=== PATIENT | female | born 1935 | race Caucasian/White ===

== ENCOUNTER 2018-11-10 18:27 | Inpatient (IN) | payer MEDICAID, OTHER ==
[2018-11-10 18:27] VITALS: BMI 17.3
[2018-11-10 18:38] VITALS: O2SAT 99
--- NOTE | 2018-11-10 18:40 | ED PDOC ---
Psych Transfer Clearance - Clearance Statement Clearance Statement: Reviewed vital signs, lab results and transfer papers. Patient clinically stable for psychiatric admission.
[2018-11-10] MEDS ORDERED: Bismuth Subsalicylate 262 mg/15 ml Sus (240 ml) PO PRN (19:39)
[2018-11-10] MEDS ORDERED: Alum-Mag Hydrox-Simethicone Susp (30 mL) PO PRN (19:39)
[2018-11-10] MEDS ORDERED: Magnesium Hydroxide Susp 30 ml UD PO PRN (19:39)
--- NOTE | 2018-11-10 20:48 | PCM.BM ---
<James Childs - Last Filed: 11/10/18 20:46> Treatment Plan Problems - Problems identified on initial assessmt Altered THought Process Date Initiated: 11/10/18 Time Initiated: 20:46 Assessment reference: NA Status: Active Priority: 1 Less than Optimal Nutrition Date Initiated: 11/10/18 Time Initiated: 20:46 Assessment reference: NA Status: Active Priority: 2 Medication Non adherence Date Initiated: 11/10/18 Time Initiated: 20:47 Assessment reference: NA Status: Active Priority: 3 Anxiety Date Initiated: 11/10/18 Time Initiated: 20:47 Assessment reference: NA Status: Active Priority: 4 Fear Date Initiated: 11/10/18 Time Initiated: 20:47 Assessment reference: NA Status: Active Priority: 5 Panic Attacks Date Initiated: 11/10/18 Time Initiated: 20:47 Assessment reference: NA Status: Active Priority: 6 Self Care Deficit Date Initiated: 11/10/18 Time Initiated: 20:48 Assessment reference: NA Status: Active Priority: 7 Altered Sleep Pattern Date Initiated: 11/10/18 Time Initiated: 20:50 Assessment reference: NA Status: Active Priority: 8 Treatment assets and liabiliti Patient Assests: ADL independent, good support system Patient Liabilities: imparied memory, language/speech - Milieu Protocol Maintain good personal hygiene: daily Encourage regular showers, daily Remind patient to perform daily oral care, daily Assist patient to perform ADL's Maintain personal safety: every shift Educate patient to report safety concerns to staff, every shift Monitor environment for contraband/sharps Medication safety: Monitor for expected outcome, potential side effects: every shift, Assess barriers to learning: every shift, Assess readiness for medication education: every shift <Roberta Gunderson - Last Filed: 11/13/18 10:01> Family Contact Family involvement: Family/SO is involved Family contact: Patient agrees to contact, Family has been contacted by patient, Telephone contact initiated by staff Family contact name: Clarissa Alvarado - granddaughter Family contacted how many times per week?: 2 Family contact comment: [phone] - Outside Agency [facility] Care involvment: Information-sharing Agency contact number: - Goals for Treatment Patient goals for treatment: Pt will improve overall mood. Pt will be free of persecutory delusions. Pt will be compliant with medications. Pt will attend clinical and activity groups. Pt will be less anxious and more re-directable. Discharge/Continuing Care - Education Needs Education Needs: Family Medication, Family Diagnosis/Disease Process, Family Coping Skills, Family Community resources, Family Activities of Daily Living, Family Health Practices/Safety, Family Personal Hygiene/Grooming, Family Aftercare Safety Plan, Patient Medication, Patient Diagnosis/Disease Process, P atient Coping Skills, Patient Community resources, Patient Activities of Daily Living, Patient Health Practices/Safety, Patient Personal Hygiene/Grooming, Patient Aftercare Safety Plan - Discharge Discharge Criteria: Tolerates medication w/o severe side effects, Free of paranoid thoughts, Free of agitation, Normal sleep pattern, Ability to care for self, Reduction of target symptoms Discharge to:: Home, With Family - Additional Comments 11/13/18 10:08 LATE ENTRY FROM 11/12/2018: Pt discussed in team meeting. Pt invited to attend team meeting but refused. Pt appeared to be highly anxious and pacing in her bedroom. Reason for admission reviewed and discussed. Collateral information obtained from granddaughter reviewed and discussed. Pt presents with increased anxiety, difficult to re- direct and frequent reminders and re-assuring that her family is not and that she did not kill her granddaughter. Pt presents with persecutory delusions. Pt's medications reviewed and discussed at length. Pt's sleep is improving. Pt's appetite is poor and pt refusing to eat meals. Pt's medical and social issues reviewed. Tx plan reviewed and discussed. SW to continue to follow case. - Treatment Team Participation Discussed with Family/SO: Yes Was Patient/Family/SO present at Treatment Team Meeting: Yes <Erick Ramos - Last Filed: 11/15/18 12:29> - Diagnosis (1) Major neurocognitive disorder Status: Acute Interventions: start namenda 11/15/18 12:29 (2) Depression Status: Acute Interventions: 11/15/18 12:29 start dania
[2018-11-11 06:17] LABS: IRON 87 ug/dL (37-170)
[2018-11-11 06:27] LABS: % IRON SATURATION 29 % (20-55); TOTAL IRON BINDING CAPACITY 299 ug/dL (250-450)
--- NOTE | 2018-11-11 17:22 | PCM.PSYCH ---
Initial Psychiatric Evaluation - Initial Psychiatric Evaluation Chief Complaint (in patient's own words): dont know why i was having bad thoughts to hurt my grand daughter, was happening more Patient's Reaction to Hospitalization: states i cant leave i having thoughts to hurt my grand daughter defers plan reports was happening more does not know why or how she is or arrived at hospital History of Present Illness and Precipitating Events: per nursing notes upon admission as noted below (pt unable to give details): " PATIENT IS AN 83 YEAR OLD FEMALE ADMITTED TO UNIT FROM [facility]. PATIENT WAS ACCOMPANIED BY TRANSPORT AND EMS AND ARRIVED TO UNIT AT 1900. PATIENT AWAKE AND ORIENTED X1, ANXIOUS, UNKEMPT AND THINLY LOOKING APPEARANCE. WHEN ATTEMPTED TO INTERVIEW PATIENT, PATIENT WAS PULLING AT APPRAISER AUDITOR'S ARM WANTING TO LEAVE. PATIENT IS NERVOUS, ANXIOUS AND WANTS TO LEAVE UNIT. [employer] [facility] HEL[employer] WAS USED, [id number] EVELINE. PATIENT WAS UNCOOPERATIVE WITH THE INTERVIEW AND WAS NOT ABLE TO GET ACCURATE INFORMATION. COLLATERAL WAS TAKEN FROM PATIENT'S GRANDDAUGHTER XIOMY WOOD. PER GRANDDAUGHTER, PATIENT HAS BEEN IN THE [place] FOR 9 MONTHS AND THAT SHE WAS JUST VISITING. GRANDDAUGHTER STATED THAT THE PATIENT HAS NOT BEEN EATING, SLEEPING OR TAKING CARE OF HERSELF FOR THE PAST WEEK AND PROBLEMS ARE PROGRESSING. GRANDDAUGHTER STATED THAT THE PATIENT IS ALSO HAVING "BAD THOUGHTS" AND THAT "EVERYONE IN HER FAMILY AND IN THE WORLD WILL ." PATIENT HAD ALSO STATED THAT SHE BELIEVES THAT "A LITTLE GIRL IS GOING TO AND DOES NOT WANT TO BE BLAMED FOR IT." PRIOR TO ADMISSION, PATIENT HAS BEEN IN [place] WHERE SHE WAS GETTING TREATED PER GRANDDAUGHTER. GRANDDAUGHTER STATED THAT THE PATIENT HAS BEEN OFF HER PSYCHIATRIC MEDICATIONS FOR MONTHS NOW BECAUSE THEIR PSYCHIATRIST WAS RELUCTANT TO CONTINUE HER MEDICATIONS DUE TO HER AGE. GRANDDAUGHTER STATED THAT THE PATIENT HAS NO CAPABILITIES OF MAKING HER OWN DECISION WHEN TOLD THAT THE PATIENT IS IN A VOLUNTARY UNIT. GRANDDAUGHTER STATED THAT THE PATIENT ONLY ACCEPTED TO SIGN IN BECAUSE SHE WAS TOLD AT [facility] THAT THE MAXIMUM STAY WOULD BE 7 DAYS. PATIENT AND GRANDDAUGHTER WAS INFORMED ABOUT THE POLICIES AND TREATMENTS THAT WOULD HAPPEN WHEN PATIENT IS IN UNIT. THE ENTIRE TIME DURING THE INTERVIEW WITH GRANDDAUGHTER, PATIENT WAS BEING DISRUPTIVE, BANGING HANDS ON TABLE, PULLING AT GRANDDAUGHTER AND WRITERS HAND, YELLING IN CROW LANGUAGE WANTING TO LEAVE BECAUSE PEOPLE WILL ." Current Medications: Active Medications Generic Name Dose Route Start Last Admin Trade Name Freq PRN Reason Stop Dose Admin Acetaminophen 650 mg 11/10/18 19:39 Tylenol 325mg Tab PO Q4 PRN Pain, moderate (4-7) Al Hydrox/Mg Hydrox/Simethicone 30 ml 11/10/18 19:39 Maalox Plus 30 Ml PO Q4 PRN Dyspepsia Bismuth Subsalicylate 524 mg 11/10/18 19:39 Pepto-Bismol PO Q4 PRN Diarrhea Lorazepam 0.5 mg 11/10/18 19:39 Ativan PO 11/24/18 19:40 HS PRN Insomnia Lorazepam 0.5 mg 11/10/18 19:39 11/11/18 13:36 Ativan PO 11/24/18 19:40 0.5 mg Q6 PRN Administration Anixety/Agitation Magnesium Hydroxide 30 ml 11/10/18 19:39 Milk Of Magnesia PO HS PRN Constipation Past Psychiatric History - Past Psychiatric History Prior Psychiatric Treatment: pt reports was treated in [place] for bad anxiety and nerves At [facility]: in [place] for nerves not able to give details Pertinent Medical Hx (Current Medical&Sleep Prob, Allergies): Allergies Allergy/AdvReac Type Severity Reaction Status Date / Time No Known Allergies Allergy Verified 11/10/18 09:45 Captopril [Capoten] 25 mg PO BID 10/01/18 Nitazepam 25 mg PO DAILY 11/10/18 Temazepam [Restoril] 15 mg PO HS 11/10/18 Thioridazine HCl [Mellaril] 25 mg PO TID 11/10/18 Tizanidine HCl 2 mg PO HS 11/10/18 hydrOXYzine Pamoate [Vistaril] 25 mg PO BID 11/10/18 Review of Systems - Psychiatric Additional comments: anxiety, decreased sleep denies having hallucinations admits to only having thoughts Mental Status Examination - Personal Presentation Additional comments: seen laying and sitting up in bed, speaks Hebrew, underproductive unless prompted tearful at times - Affect Affect: Constricted - Motor Activity Motor Activity: Psychomotor Retardation - Reliability in Providing Information Reliability in Providing Information: Poor, due to alteration in thoughts, Poor, due to cognitve impairment - Mood Mood: Anxious - Formal Thought Process Formal Thought Process: Paranoia - Cognitive Functions Orientation: Person, Place, Situation Judgement: Imparied, as evidence by: Other Memory: Recent impaired, as evidenced by: Other - Risk Risk: Diminished functioning Additional comments: anxiety thoughts to harm grand daughter without plan reports are thoughts in her head - Strength & Assets Inventory Additional comments: supportive grand daughter pre records (attempted to call [phone] number listed on copy of prescription from [facility] dr meagan nolasco dated 10/10/18 written for tizanidine 3mg po hs vistaril 25mg po bid - Limitations Additional comments: anxiety ?cognition DSM 5 DX - DSM 5 DSM 5 Diagnosis: change in mental status dementia with behavior disturbance hx of anxiety hx of ?psychosis hx. of thyroid disease - Recommended/Plan of Treatment Treatment Recommendations and Plan of Treatment: inpt adm per attending vital signs and clinical observation per protocol and per clinical status prns per unit protocol attempted to call "xiomy" [phone] no answer hospitalist consult pt with reported hx. nitrazepam 25mg in [place] ? last taken (per copy of prescription on chart (per hx) per grand daughter thioridazine 25mg in [place]? last taken (per copy of prescription on chart (per hx) per grand daughter team to attempt collection of collateral information in am will adjust medications accordingly Projected ELOS: 7-10 days Prognosis: guarded Discharge Plan and Discharge Criteria: safety - Smoking Cessation Smoking Cessation Initiated: No Reason for not providing: defers
[2018-11-11 17:44] LABS: FOLATE 17.1 ng/mL
--- NOTE | 2018-11-11 20:37 | CP.PCM.CON ---
History of Present Illness - History of Present Illness History of Present Illness: 83 y/o F with PMH HTN,some psychiatric Condition ( bipolar ? ) was transferred from [facility] ER from crisis team to [facility] psychiatric unit for management.History mainly obtained from granddaughter. Patient is visiting from [place] and has been here for almost 8 months. As per granddaughter patient has not been sleeping for almost 1 week, not eating , talking to herself , feeling anxious and agitated , loosing weight. As per grand daughter patient has been having attacks of depression and attacks of anil since she was 51 years old but never treated appropriately.She was hospitalized last year in [place] in the same and was started on some treatment and after stabilized was discharged home. At present patient is very anxious, agitated , with racing thoughts, thinking bad things about people and world, states that she is being punished for things she has done in the past, states she can not swallow and can not breathe. Unable to get any other information at present Allergies:NKDA PMH ; HTN Medications; Captopril Surgery;Thyroidectomy Family history ; Mother and brother had some psychiatric condition Social history ; From [place], Has been living with grand daughter for the last 8 months. No smoking , no ETOH , no drug abuse ROS ; unable to obtain fully But all systems negative except abocve Code status ; Full Review of Systems - Review of Systems All systems: reviewed and no additional remarkable complaints except Past Patient History - Past Social History Smoking Status: Never Smoked - CARDIAC Hx Hypertension: Yes - PULMONARY Hx Tuberculosis: No - NEUROLOGICAL HX Cerebrovascular Accident: No Hx Seizures: No - HEMATOLOGICAL/ONCOLOGICAL Hx Cancer: No Hx Human Immunodeficiency Virus (HIV): No - MUSCULOSKELETAL/RHEUMATOLOGICAL Hx Falls: Yes - GENITOURINARY/GYNECOLOGICAL Hx Sexually Transmitted Disorders: No - PSYCHIATRIC Hx Anxiety: Yes Hx Depression: Yes Hx Schizophrenia: Yes Hx Substance Use: No - SURGICAL HISTORY Hx Surgeries: Yes Hx Thyroidectomy: Yes Meds Allergies/Adverse Reactions: Allergies Allergy/AdvReac Type Severity Reaction Status Date / Time No Known Allergies Allergy Verified 11/10/18 09:45 - Medications Medications: Current Medications Acetaminophen (Tylenol 325mg Tab) 650 mg PO Q4 PRN PRN Reason: Pain, moderate (4-7) Al Hydrox/Mg Hydrox/Simethicone (Maalox Plus 30 Ml) 30 ml PO Q4 PRN PRN Reason: Dyspepsia Bismuth Subsalicylate (Pepto-Bismol) 524 mg PO Q4 PRN PRN Reason: Diarrhea Lorazepam (Ativan) 0.5 mg PO HS PRN PRN Reason: Insomnia Stop: 11/24/18 19:40 Lorazepam (Ativan) 0.5 mg PO Q6 PRN PRN Reason: Anixety/Agitation Stop: 11/24/18 19:40 Last Admin: 11/11/18 13:36 Dose: 0.5 mg Magnesium Hydroxide (Milk Of Magnesia) 30 ml PO HS PRN PRN Reason: Constipation Mirtazapine (Remeron) 7.5 mg PO HS NANI Physical Exam - Constitutional Appears: Agitated, Cachectic, Chronically Ill - Head Exam Head Exam: ATRAUMATIC, NORMOCEPHALIC - Eye Exam Eye Exam: EOMI, PERRL Pupil Exam: NORMAL ACCOMODATION - ENT Exam ENT Exam: Normal Exam - Neck Exam Neck exam: Positive for: Full Rom, Normal Inspection - Respiratory Exam Respiratory Exam: Clear to Auscultation Bilateral, NORMAL BREATHING PATTERN. absent: Rales, Rhonchi, Wheezes, Respiratory Distress - Cardiovascular Exam Cardiovascular Exam: REGULAR RHYTHM, RRR, +S1, +S2. absent: JVD - GI/Abdominal Exam GI & Abdominal Exam: Normal Bowel Sounds, Soft. absent: Distended, Guarding, Rebound, Tenderness - Rectal Exam Rectal Exam: Deferred - Extremities Exam Extremities exam: Positive for: normal capillary refill, normal inspection, pedal pulses present. Negative for: pedal edema - Back Exam Back exam: NORMAL INSPECTION - Neurological Exam Neurological exam: Alert, CN II-XII Intact, Oriented x3 - Psychiatric Exam Psychiatric exam: Agitated, Anxious, Flat Affect - Skin Skin Exam: Dry, Warm Results - Vital Signs Recent Vital Signs: Last Vital Signs Temp 98.1 F 11/11/18 05:51 Pulse 60 11/11/18 17:48 Resp 19 11/11/18 05:51 BP 119/65 11/11/18 17:48 Pulse Ox 99 11/10/18 18:31 - Labs Labs: Laboratory Results - last 24 hr 11/11/18 11/11/18 11/11/18 05:21 05:21 05:21 Hemoglobin A1c Iron 87 TIBC 299 % Saturation 29 Ferritin 118.0 Triglycerides 72 Cholesterol 161 LDL Cholesterol Direct 86 HDL Cholesterol 49 Vitamin B12 462 Folate 17.1 Free T4 1.18 Thyroxine (T4) 8.93 TSH 3rd Generation 0.50 RPR 11/11/18 11/11/18 05:21 05:21 Hemoglobin A1c 5.6 Iron TIBC % Saturation Ferritin Triglycerides Cholesterol LDL Cholesterol Direct HDL Cholesterol Vitamin B12 Folate Free T4 Thyroxine (T4) TSH 3rd Generation RPR Nonreactive Assessment & Plan - Assessment and Plan (Free Text) Assessment: 83 y/o Female with PMH HTN , Bipolar Disorder ?? untreated and undiagnosed admitted to psychiatric unit for agitation , racing amnd bad thoughts 1. Psychiatic condition Management as per psych Thyroid fxn normal CT head without contrast swallow eval 2. HTN start Enalapril low dose 5 mg po daily and monitor
--- NOTE | 2018-11-12 18:07 | PCM.PYCHPN ---
Psychiatric Progress Note - Psychiatric Progress Note Patient seen today, length of contact: chart reviewed case discussed with team pt seen Patient Chief Complaint: dont know why i was having bad thoughts to hurt my grand daughter, was happening more Problems Identified/Issues Discussed: alteration in mood alteration in cognition Medical Problems: per chart pt seen by hospitalist Dr Cage Diagnostic Results: per nursing per psychiatry per medicine per social work per recreational therapy DSM 5 Symptoms Update: pacing, labile, pervasive paranoia, anxiety Medication Change: Yes (start seroquel 25mg hs, trileptal 150mg po bid) Medical Record Reviewed: Yes Consults ordered or reviewed: pt seen by hospitalist Mental Status Examination - Cognitive Function Orientation: Person, Place, Situation Decription of patient's judgement and insights: impaired - Mood Mood: Anxious - Affect Affect: Constricted - Formal Thought Process Formal Thought Process: Paranoia - Homicidal Ideation Homicidal Ideation: Yes Plan: reports that has chronic thoughts of wanting to harm grand daughter without plan reports has been since living in [place] Goal/Treatment Plan - Goal/Treatment Plan Progress Toward Problem(s) and Goals/Treatment Plan: inpt adm vital signs and clinical observation per protocol and per clinical status prns per unit protocol Clarissa met with stationary steam engineer today pt gavie verbal permission hospitalist consult-pt seen by yumiko will start seroquel 25mg po hs and trileptal 150mg po bid for mood and psychosis will adjust medications accordingly discharge planning in progress Estimated Date of D/C: 11/19/18 - Smoking Cessation Smoking Cessation Initiated: No Reason for not providing: defers
--- NOTE | 2018-11-13 17:12 | PCM.PYCHPN ---
Psychiatric Progress Note - Psychiatric Progress Note Patient seen today, length of contact: chart reviewed case discussed with team pt seen Patient Chief Complaint: seen laying in bed, reports continues to feel like all of her family is , does not know why or how, reports that does not want to harm any now, staff report pt slept last night, rx adherent with support of staff Problems Identified/Issues Discussed: alteration in mood alteration in cognition alteration self care Medical Problems: per chart pt seen by hospitalist Dr Cage Diagnostic Results: per nursing per psychiatry per medicine per social work per recreational therapy DSM 5 Symptoms Update: alteration in cognition, mood Medication Change: No Medical Record Reviewed: Yes Consults ordered or reviewed: pt being followed by medical team Mental Status Examination - Cognitive Function Orientation: Person, Place Attention: Poor Concentration: Poor Association: Loose Fund of Knowledge: Poor Decription of patient's judgement and insights: impaired - Mood Mood: Anxious - Affect Affect: Constricted - Formal Thought Process Formal Thought Process: Delusions (duke pulido believes she has already harmed adult grand daughter staff spoke today [facility] ), Paranoia - Homicidal Ideation Homicidal Ideation: Yes Goal/Treatment Plan - Goal/Treatment Plan Progress Toward Problem(s) and Goals/Treatment Plan: inpt adm vital signs and clinical observation per protocol and per clinical status prns per unit protocol will adjust medications accordingly telesales team leader spoke with adult grand daughter today discharge planning in progress Estimated Date of D/C: 11/19/18 - Smoking Cessation Smoking Cessation Initiated: No Reason for not providing: pt defers
--- NOTE | 2018-11-14 17:25 | PCM.PYCHPN ---
Psychiatric Progress Note - Psychiatric Progress Note Patient seen today, length of contact: chart reviewed case discussed with team pt seen Patient Chief Complaint: pt initially seen laying in bed, later seen near nurse's station. pt continues to be stating that all of the sick people in the world is her fault because she having bad thoughts, she just thinks of something and some gets sick or dies. pt reports that she has killed her grand daughter but her grand daughter is noted to spoken to prepared foods team leader today. team reports that pt requires frequent redirection, swallowing study was attempted but pt appeared to not be able to or choose to follow instructions. pt requires total care at this times. Problems Identified/Issues Discussed: alteration in mood alteration in cognition alteration self care Medical Problems: per chart pt being followed by medical team Diagnostic Results: per nursing per psychiatry per medicine per social work per recreational therapy DSM 5 Symptoms Update: continues to be delusional, paranoid Medication Change: No Medical Record Reviewed: Yes Consults ordered or reviewed: pt being followed by medical team swallowing study attempted today per team Mental Status Examination - Cognitive Function Orientation: Person, Place Attention: Poor Concentration: Poor Association: Loose Fund of Knowledge: Poor Decription of patient's judgement and insights: impaired - Mood Mood: Anxious - Affect Affect: Constricted - Formal Thought Process Formal Thought Process: Delusions (duke pulido believes she has already harmed adult grand daughter staff spoke today [facility] ), Paranoia - Suicidal Ideation Plan: states I am going to because of all of my bad thoughts, denies plan or ill will - Homicidal Ideation Homicidal Ideation: Yes Goal/Treatment Plan - Goal/Treatment Plan Progress Toward Problem(s) and Goals/Treatment Plan: inpt adm vital signs and clinical observation per protocol and per clinical status prns per unit protocol will increase seroquel to 50mg po hs falls precautions prepared foods team leader spoke with adult grand daughter today discharge planning in progress Estimated Date of D/C: 11/19/18 - Smoking Cessation Smoking Cessation Initiated: No Reason for not providing: defers
--- NOTE | 2018-11-15 12:31 | PCM.PYCHPN ---
Psychiatric Progress Note - Psychiatric Progress Note Patient seen today, length of contact: chart reviewed case discussed with team pt seen Patient Chief Complaint: i am tired Problems Identified/Issues Discussed: pt seen in bed , with anxious mood and affect, limited insight into illness, oriented to person only, no reported side effects of medications, denied suicidal or homicidal ideation Medication Change: No Medical Record Reviewed: Yes Mental Status Examination - Cognitive Function Orientation: Person, Place Attention: Poor Concentration: Poor Association: Loose Fund of Knowledge: Poor - Mood Mood: Anxious - Affect Affect: Constricted - Formal Thought Process Formal Thought Process: Delusions (duke pulido believes she has already harmed adult grand daughter staff spoke today [facility] ), Paranoia - Homicidal Ideation Homicidal Ideation: Yes Goal/Treatment Plan - Goal/Treatment Plan Need for Continued Stay: Severe depression anxiety, Discharge may exacerbated symptoms Progress Toward Problem(s) and Goals/Treatment Plan: continue current management start namenda disposition planning Estimated Date of D/C: 11/19/18
--- NOTE | 2018-11-16 12:21 | PCM.PYCHPN ---
Psychiatric Progress Note - Psychiatric Progress Note Patient seen today, length of contact: chart reviewed case discussed with team pt seen Patient Chief Complaint: where is my nurse Problems Identified/Issues Discussed: pt seen in bed , with anxious mood and irritable affect, guarded , paranoid , limited insight into illness, oriented to person only, no reported side effects of medications, denied suicidal or homicidal ideation DSM 5 Symptoms Update: major depression recurrent major neurocognitive disorder Medication Change: Yes (start risperidone, increase remeron) Medical Record Reviewed: Yes Mental Status Examination - Cognitive Function Orientation: Person, Place Attention: Poor Concentration: Poor Association: Loose Fund of Knowledge: Poor - Mood Mood: Anxious - Affect Affect: Constricted - Formal Thought Process Formal Thought Process: Delusions (duke pulido believes she has already harmed adult grand daughter staff spoke today angelamagaly ), Paranoia - Homicidal Ideation Homicidal Ideation: Yes Goal/Treatment Plan - Goal/Treatment Plan Need for Continued Stay: Severe depression anxiety, Discharge may exacerbated symptoms Progress Toward Problem(s) and Goals/Treatment Plan: discontinue seroquel and trileptal start risperidone 0.5mg bid, increase gradually remeron 15 mg qhs disposition planning Estimated Date of D/C: 11/19/18
[2018-11-16] MEDS: Risperidone M tab 0.5MG PO SCH (21:02)
[2018-11-17] MEDS: Risperidone M tab 0.5MG PO SCH ×2 (08:54→21:00)
--- NOTE | 2018-11-17 09:52 | PCM.PYCHPN ---
Psychiatric Progress Note - Psychiatric Progress Note Patient seen today, length of contact: Pt evaluated, case discussed w/ team, chart reviewed Patient Chief Complaint: "I'm worried I hurt someone." Problems Identified/Issues Discussed: Patient reports feeling depressed, anxious and distressed due to delusional beliefs that she may have killed someone. She seems internally preoccupied and confused at times. She has poor appetite and was encouraged by typewriters functional tester to eat and participate in groups. Medication Change: No Medical Record Reviewed: Yes Consults ordered or reviewed: Medicine consult Mental Status Examination - Cognitive Function Orientation: Person Attention: Poor Concentration: Poor Association: Loose Fund of Knowledge: Poor Decription of patient's judgement and insights: Poor I/J - Mood Mood: Depressed, Anxious - Affect Affect: Constricted - Formal Thought Process Formal Thought Process: Delusions, Paranoia Psychotic Thoughts and Behaviors: +Delusions she may have killed someone - Suicidal Ideation Suicidal Ideation: No - Homicidal Ideation Homicidal Ideation: No Goal/Treatment Plan - Goal/Treatment Plan Need for Continued Stay: Severe depression anxiety, Discharge may exacerbated symptoms Progress Toward Problem(s) and Goals/Treatment Plan: Major Depressive Disorder w/ Psychotic Featuers; Major Neurocognitive Disorder -Continue Remeron -Continue Risperdal -Dietitian referral -Individual and group therapy -Psychoeducation -Disposition planning
[2018-11-18] MEDS: Risperidone M tab 0.5MG PO SCH (08:25)
--- NOTE | 2018-11-18 09:22 | PCM.PYCHPN ---
Psychiatric Progress Note - Psychiatric Progress Note Patient seen today, length of contact: Pt evaluated, case discussed w/ team, chart reviewed Patient Chief Complaint: "I'm worried I hurt someone." Problems Identified/Issues Discussed: Patient continues to be delusional that she killed her granddaughter. She reports anxiety and states that she wants to due to these worries that she killed someone. She denies active suicidal plan/intent. She continues to have poor appetite and has to be directed by staff to eat. Medication Change: Yes (Increase Risperdal ) Medical Record Reviewed: Yes Consults ordered or reviewed: Medicine consult Mental Status Examination - Cognitive Function Orientation: Person Attention: Poor Concentration: Poor Association: Loose Fund of Knowledge: Poor Decription of patient's judgement and insights: Poor I/J - Mood Mood: Depressed, Anxious - Affect Affect: Constricted - Formal Thought Process Formal Thought Process: Delusions, Paranoia Psychotic Thoughts and Behaviors: +Delusions she may have killed someone - Suicidal Ideation Suicidal Ideation: No - Homicidal Ideation Homicidal Ideation: No Goal/Treatment Plan - Goal/Treatment Plan Need for Continued Stay: Severe depression anxiety, Discharge may exacerbated symptoms Progress Toward Problem(s) and Goals/Treatment Plan: Major Depressive Disorder w/ Psychotic Featuers; Major Neurocognitive Disorder -Continue Remeron -Increase Risperdal -Dietitian referral -Individual and group therapy -Psychoeducation -Disposition planning
[2018-11-18] MEDS: Risperidone M tab 1 MG PO SCH (21:02)
[2018-11-19] MEDS: Risperidone M tab 1 MG PO SCH ×2 (08:22→21:28)
--- NOTE | 2018-11-19 10:19 | PCM.PYCHPN ---
Psychiatric Progress Note - Psychiatric Progress Note Patient seen today, length of contact: Pt evaluated, case discussed w/ team, chart reviewed Patient Chief Complaint: "I'm worried I hurt someone." Problems Identified/Issues Discussed: Patient continues to be delusional, believes that the world is going to end, that she has criminal thoughts and that the thoughts have led to the of her granddaughter. She is also somatically preoccupied, believes that she can not breath or eat, but patient is not in acute distress and is able to eat and swallow when encouraged by staff. Medication Change: Yes (Increase Risperdal ) Medical Record Reviewed: Yes Consults ordered or reviewed: Medicine consult Mental Status Examination - Cognitive Function Orientation: Person Attention: Poor Concentration: Poor Association: Loose Fund of Knowledge: Poor Decription of patient's judgement and insights: Poor I/J - Mood Mood: Depressed, Anxious - Affect Affect: Constricted - Formal Thought Process Formal Thought Process: Delusions, Paranoia Psychotic Thoughts and Behaviors: +Delusions she may have killed someone - Suicidal Ideation Suicidal Ideation: No - Homicidal Ideation Homicidal Ideation: No Goal/Treatment Plan - Goal/Treatment Plan Need for Continued Stay: Severe depression anxiety, Discharge may exacerbated symptoms Progress Toward Problem(s) and Goals/Treatment Plan: Major Depressive Disorder w/ Psychotic Johannuers; Major Neurocognitive Disorder -Continue Remeron -Increase Risperdal -Dietitian referral -Individual and group therapy -Psychoeducation -Disposition planning Estimated Date of D/C: 11/24/18
--- NOTE | 2018-11-19 11:47 | PCM.BM ---
Treatment Plan Problems - Problems identified on initial assessmt Altered THought Process Date Initiated: 11/10/18 Time Initiated: 20:46 Assessment reference: NA Status: Active Priority: 1 Less than Optimal Nutrition Date Initiated: 11/10/18 Time Initiated: 20:46 Assessment reference: NA Status: Active Priority: 2 Medication Non adherence Date Initiated: 11/10/18 Time Initiated: 20:47 Assessment reference: NA Status: Active Priority: 3 Anxiety Date Initiated: 11/10/18 Time Initiated: 20:47 Assessment reference: NA Status: Active Priority: 4 Fear Date Initiated: 11/10/18 Time Initiated: 20:47 Assessment reference: NA Status: Active Priority: 5 Panic Attacks Date Initiated: 11/10/18 Time Initiated: 20:47 Assessment reference: NA Status: Active Priority: 6 Self Care Deficit Date Initiated: 11/10/18 Time Initiated: 20:48 Assessment reference: NA Status: Active Priority: 7 Altered Sleep Pattern Date Initiated: 11/10/18 Time Initiated: 20:50 Assessment reference: NA Status: Active Priority: 8 Treatment assets and liabiliti Patient Assests: ADL independent, good support system Patient Liabilities: imparied memory, language/speech - Milieu Protocol Maintain good personal hygiene: daily Encourage regular showers, daily Remind patient to perform daily oral care, daily Assist patient to perform ADL's Maintain personal safety: every shift Educate patient to report safety concerns to staff, every shift Monitor environment for contraband/sharps Medication safety: Monitor for expected outcome, potential side effects: every shift, Assess barriers to learning: every shift, Assess readiness for medication education: every shift Milieu Narrative: Major Depressive Disorder w/ Psychotic Featuers; Major Neurocognitive Disorder -Continue Remeron -Increase Risperdal -Dietitian referral -Individual and group therapy -Psychoeducation -Disposition planning Family Contact Family involvement: Family/SO is involved Family contact: Patient agrees to contact, Family has been contacted by patient, Telephone contact initiated by staff Family contact name: Clarissa Alvarado - granddaughter Family contacted how many times per week?: 2 Family contact comment: [phone] - Outside Agency [facility] involvment: Information-sharing Agency contact number: - Goals for Treatment Patient goals for treatment: Pt will improve overall mood. Pt will be free of persecutory delusions. Pt will be compliant with medications. Pt will attend clinical and activity groups. Pt will be less anxious and more re-directable. Discharge/Continuing Care - Education Needs Education Needs: Family Medication, Family Diagnosis/Disease Process, Family Coping Skills, Family Community resources, Family Activities of Daily Living, Family Health Practices/Safety, Family Personal Hygiene/Grooming, Family Aftercare Safety Plan, Patient Medication, Patient Diagnosis/Disease Process, Patient Coping Skills, Patient Community resources, Patient Activities of Daily Living, Patient Health Practices/Safety, Patient Personal Hygiene/Grooming, Patient Aftercare Safety Plan - Discharge Discharge Criteria: Tolerates medication w/o severe side effects, Free of paranoid thoughts, Free of agitation, Normal sleep pattern, Ability to care for self, Reduction of target symptoms Discharge to:: Home, With Family - Additional Comments 11/13/18 10:08 LATE ENTRY FROM 11/12/2018: Pt discussed in team meeting. Pt invited to attend team meeting but refused. Pt appeared to be highly anxious and pacing in her bedroom. Reason for admission reviewed and discussed. Collateral information obtained from granddaughter reviewed and discussed. Pt presents with increased anxiety, difficult to re- direct and frequent reminders and re-assuring that her family is not and that she did not kill her granddaughter. Pt presents with persecutory delusions. Pt's medications reviewed and discussed at length. Pt's sleep is improving. Pt's appetite is poor and pt refusing to eat meals. Pt's medical and social issues reviewed. Tx plan reviewed and discussed. SW to continue to follow case. - Treatment Team Participation Patient/Family/SO Statement: Major Depressive Disorder w/ Psychotic Featuers; Major Neurocognitive Disorder -Continue Remeron -Increase Risperdal -Dietitian referral -Individual and group therapy -Psychoeducation -Disposition planning Discussed with Family/SO: Yes Was Patient/Family/SO present at Treatment Team Meeting: Yes Treatment Plan Review Patient participation: Yes Family/SO/Caregiver participation: No Additional Comments: Pt seen and discussed in team meeting. Pt's progress and bx on the unit reviewed and discussed. Pt appears to be anxious and in distress. Pt observed to be wear ing hospital gown and thin. Pt continues to verbalized having "bad thoughts, criminal thoughts." Pt reported that several people were killed because of her thoughts and continues to believe that her granddaughter was killed last night. Pt provided with re-assurance and advised that her granddaughter is alive and well. Ptis not accepting reality testing and continues to believe that she killed her granddaughter with her "bad thoughts." Pt continues to report somatic symptoms stating she cannot breathe and she cannot eat because she cannot swallow. Pt reported that the world is going to end and that "I cannot live anymore." Pt continues to express passive wishes. Pt's appetite is poor unless staff is with her and encouraging her to eat. Pt reported that her sleep is poor. Pt encouraged and motivated to get up and out of the bed and her room during the day and to attend clinical and activity groups. Pt refusing to attend activity groups. Pt's medications reviewed and discussed. Attending psychiatrist reported she will be increasing the Risperdal to 1mg Q12. Sw will continue to follow case. - Problem Altered THought Process Date Initiated: 11/10/18 Time Initiated: 20:46 Progress toward outcomes: improved (Pt is alert and oriented to person and place.) Less than Optimal Nutrition Date Initiated: 11/10/18 Time Initiated: 20:46 Progress toward outcomes: unchanged (Pt's appetite is poor. Pt is under weight. Pt requires prompting and encouragement to eat her meals.) Medication Non adherence Date Initiated: 11/10/18 Time Initiated: 20:47 Progress toward outcomes: resolved (Pt is compliant with prescribed medications.) Anxiety Date Initiated: 11/10/18 Time Initiated: 20:47 Progress toward outcomes: unchanged (Pt continues to be highly anxious.) Fear Date Initiated: 11/10/18 Time Initiated: 20:47 Progress toward outcomes: unchanged (Pt continues to report fear that she can hurt people with her "bad thoughts.") Panic Attacks Date Initiated: 11/10/18 Time Initiated: 20:47 Progress toward outcomes: unchanged (Pt continues to report high anxiety levels.) Self Care Deficit Date Initiated: 11/10/18 Time Initiated: 20:48 Progress toward outcomes: unchanged (Pt requires prompting and encouragement to complete ADL's.) Altered Sleep Pattern Date Initiated: 11/10/18 Time Initiated: 20:50 Progress toward outcomes: unchanged (Pt continues to report poor sleep at night time. Pt reported that she is lays in bed with her eyes closed but is not sleeping.) - Discharge / Continuing Care Discharge to:: Home, With Family Behavioral Health Services: Outpatient therapy Health Needs: Follow up care/test, Doctor appointments, Nutritional, Medications/Rx, Recreational/Social
--- NOTE | 2018-11-19 14:38 | CT ---
Date of service: 11/19/2018 PROCEDURE: CT HEAD WITHOUT CONTRAST. HISTORY: Acute decline in function; new onset psychosis COMPARISON: None available. TECHNIQUE: Axial computed tomography images were obtained through the head/brain without intravenous contrast. Supplemental Coronal and Sagittal projections created and reviewed. Radiation dose: Total exam DLP = 856.92 mGy-cm. This CT exam was performed using one or more of the following dose reduction techniques: Automated exposure control, adjustment of the mA and/or kV according to patient size, and/or use of iterative reconstruction technique. FINDINGS: HEMORRHAGE: No intracranial hemorrhage. BRAIN: No mass effect or edema. Age related senescent changes. VENTRICLES: Unremarkable. No hydrocephalus. CALVARIUM: Unremarkable. PARANASAL SINUSES: Unremarkable as visualized. No significant inflammatory changes. MASTOID AIR CELLS: Unremarkable as visualized. No inflammatory changes. OTHER FINDINGS: None. IMPRESSION: No acute intracranial abnormalities. No significant findings to account for the clinical presentation.
[2018-11-20] MEDS: Risperidone M tab 1 MG PO SCH (08:11)
--- NOTE | 2018-11-20 10:00 | PCM.PYCHPN ---
Psychiatric Progress Note - Psychiatric Progress Note Patient seen today, length of contact: Pt evaluated, case discussed w/ team, chart reviewed Patient Chief Complaint: "I'm worried I hurt someone." Problems Identified/Issues Discussed: Patient continues to have poor appetite and has to be encouraged to eat by staff. Patient continues to be delusional, believes that the world is going to end, that she has criminal thoughts and that the thoughts have led to the of her granddaughter. She continues to be anxious and states that she can not breath or eat because of the things she has done. Patient is not in any actual acute medical distress. Medication Change: Yes (Increase Risperdal ) Medical Record Reviewed: Yes Consults ordered or reviewed: Medicine consult Mental Status Examination - Cognitive Function Orientation: Person Attention: Poor Concentration: Poor Association: Loose Fund of Knowledge: Poor Decription of patient's judgement and insights: Poor I/J - Mood Mood: Depressed, Anxious - Affect Affect: Constricted - Formal Thought Process Formal Thought Process: Delusions, Paranoia Psychotic Thoughts and Behaviors: +Delusions she may have killed someone - Suicidal Ideation Suicidal Ideation: No - Homicidal Ideation Homicidal Ideation: No Goal/Treatment Plan - Goal/Treatment Plan Need for Continued Stay: Severe depression anxiety, Discharge may exacerbated symptoms Progress Toward Problem(s) and Goals/Treatment Plan: Major Depressive Disorder w/ Psychotic Features; Major Neurocognitive Disorder -Continue Remeron -Increase Risperdal -Dietitian referral -Individual and group therapy -Psychoeducation -Disposition planning
[2018-11-20] MEDS ORDERED: Risperidone M tab 0.5MG PO SCH (22:00)
[2018-11-21] MEDS: Risperidone M tab 1 MG PO SCH (08:43)
--- NOTE | 2018-11-21 10:35 | PCM.PYCHPN ---
Psychiatric Progress Note - Psychiatric Progress Note Patient seen today, length of contact: Pt evaluated, case discussed w/ team, chart reviewed Patient Chief Complaint: Delusions Problems Identified/Issues Discussed: Patient continues to delusional and anxious. Patient reports that she believes the world is going to end, she believes she has gould to wish bad on people, believes cars are going to catch on fire, believes she has done a lot of evil in the world. She refused to take medications this morning. She continues to be anxious and somatically preoccupied. Patient needs direction from staff to engage in self care. Medication Change: Yes (Increase Risperdal ) Medical Record Reviewed: Yes Consults ordered or reviewed: Medicine consult Mental Status Examination - Cognitive Function Orientation: Person Attention: Poor Concentration: Poor Association: Loose Fund of Knowledge: Poor Decription of patient's judgement and insights: Poor I/J - Mood Mood: Depressed, Anxious - Affect Affect: Constricted - Formal Thought Process Formal Thought Process: Delusions, Paranoia Psychotic Thoughts and Behaviors: +Delusions she may have killed someone - Suicidal Ideation Suicidal Ideation: No - Homicidal Ideation Homicidal Ideation: No Goal/Treatment Plan - Goal/Treatment Plan Need for Continued Stay: Severe depression anxiety, Discharge may exacerbated symptoms Progress Toward Problem(s) and Goals/Treatment Plan: Major Depressive Disorder w/ Psychotic Features; Major Neurocognitive Disorder -Continue Remeron -Increase Risperdal -Dietitian referral -Individual and group therapy -Psychoeducation -Disposition planning
[2018-11-21] MEDS: Risperidone M TAB 2 MG PO SCH (21:13)
[2018-11-22] MEDS: Risperidone M tab 1 MG PO SCH ×2 (09:18→10:33)
--- NOTE | 2018-11-22 12:47 | PCM.PYCHPN ---
Psychiatric Progress Note - Psychiatric Progress Note Patient seen today, length of contact: Pt evaluated, case discussed w/ team, chart reviewed Patient Chief Complaint: pt seen in milieu, then pacing in unit, states has been having bad thoughts, can wish people harm it is pt's fault that people are sick and dying. denies having intended target. staff report pt appears to more anxious and paranoid over past 24 hours. staff report that pt's daughter was to visit yesterday-pt had episode of tachycardia-pt's previous pulse varied from approx. 60-90 bpm. daughter reportedly requested that pt. not receive risperdal until said daughter was contacted. this typewriters functional tester attempted to call daughter, phone rang once then clicked into voice mail. message was left"please call [facility] [phone] at approx. 1030. pt does not have POA. treatment was discussed with team. pt did not receive risperdal last evening, given pt's clinical status and concern possible serotonin withdrawal risperdal was given by staff. pt requires total care, prompting with adherence with treatment. pt continues to have decreased appetite. Problems Identified/Issues Discussed: alteration in mood alteration in cognition alteration self care Medical Problems: per chart pt being followed by medical team Diagnostic Results: per nursing per psychiatry per medicine per social work per recreational therapy DSM 5 Symptoms Update: impaired cognition, impaired self care, impaired nutrition Medication Change: No Medical Record Reviewed: Yes Consults ordered or reviewed: pt being followed by medical team Mental Status Examination - Cognitive Function Orientation: Person Attention: Poor Concentration: Poor Association: Loose Fund of Knowledge: Poor Decription of patient's judgement and insights: poor - Mood Mood: Depressed, Anxious - Affect Affect: Constricted - Formal Thought Process Formal Thought Process: Delusions, Paranoia - Suicidal Ideation Suicidal Ideation: No - Homicidal Ideation Homicidal Ideation: No Goal/Treatment Plan - Goal/Treatment Plan Need for Continued Stay: Severe depression anxiety, Discharge may exacerbated symptoms Progress Toward Problem(s) and Goals/Treatment Plan: inpt adm vital signs and clinical observation per protocol and per clinical status prns per unit protocol attempt was made to contact pt's daughter message was left risperdal was resumed 2nd to clinical status and per fear of concern possible serotonin withdrawal case was discussed with primary social worker palliative care pt does not have POA discharge planning in progress Estimated Date of D/C: 11/24/18 - Smoking Cessation Smoking Cessation Initiated: No Reason for not providing: pt defers
[2018-11-22] MEDS: Risperidone M TAB 2 MG PO SCH (21:15)
[2018-11-23] MEDS: Risperidone M tab 1 MG PO SCH ×2 (09:02→09:44)
--- NOTE | 2018-11-23 17:25 | PCM.PYCHPN ---
Psychiatric Progress Note - Psychiatric Progress Note Patient seen today, length of contact: Pt evaluated, case discussed w/ team, chart reviewed Patient Chief Complaint: pt seen in milieu, then pacing in unit, states has been having bad thoughts, can wish people harm it is pt's fault that people are sick and dying. denies having intended target. staff report pt appears to more anxious and paranoid over past 24 hours. staff report that pt's daughter was to visit yesterday-pt had episode of tachycardia-pt's previous pulse varied from approx. 60-90 bpm. daughter reportedly requested that pt. not receive risperdal until said daughter was contacted. this life underwriter attempted to call daughter, phone rang once then clicked into voice mail. message was left"please call [facility] [phone] at approx. [phone]. pt does not have POA. treatment was discussed with team. pt did not receive risperdal last evening, given pt's clinical status and concern possible serotonin withdrawal risperdal was given by staff. pt requires total care, prompting with adherence with treatment. pt continues to have decreased appetite. Problems Identified/Issues Discussed: alteration in mood alteration in cognition alteration self care Medical Problems: per chart pt being followed by medical team Diagnostic Results: per nursing per psychiatry per medicine per social work per recreational therapy Medication Change: No Medical Record Reviewed: Yes Consults ordered or reviewed: pt being followed by medical team Mental Status Examination - Cognitive Function Orientation: Person Attention: Poor Concentration: Poor Association: Loose Fund of Knowledge: Poor Decription of patient's judgement and insights: poor - Mood Mood: Depressed, Anxious - Affect Affect: Constricted - Formal Thought Process Formal Thought Process: Delusions, Paranoia - Suicidal Ideation Suicidal Ideation: No - Homicidal Ideation Homicidal Ideation: No Goal/Treatment Plan - Goal/Treatment Plan Need for Continued Stay: Severe depression anxiety, Discharge may exacerbated symptoms Progress Toward Problem(s) and Goals/Treatment Plan: inpt adm vital signs and clinical observation per protocol and per clinical status prns per unit protocol attempt was made to contact pt's daughter message was left-pt's daughter did not call back yesterday nurse's note reviewed from last evening daughter requesting decreased dose of risperdal will decrease am dose of risperdal po 0.5mg (was 1mg), continue pm dose of risperdal 2mg-team can re evaluate pt in am and possibly attempt family meeting and discuss risperdal was resumed 2nd to clinical status (paranoia/hallucinations) and per fear of concern possible serotonin withdrawal as previously written, case was discussed with primary socially responsible investment adviser (11/22/18) pt does not have POA- ?ltc discharge planning in progress Estimated Date of D/C: 11/28/18 - Smoking Cessation Smoking Cessation Initiated: No Reason for not providing: defers
[2018-11-23] MEDS: Risperidone M TAB 2 MG PO SCH (21:09)
--- NOTE | 2018-11-24 12:35 | PCM.PYCHPN ---
Psychiatric Progress Note - Psychiatric Progress Note Patient seen today, length of contact: Pt evaluated, case discussed w/ team, chart reviewed Patient Chief Complaint: Delusions Problems Identified/Issues Discussed: Patient continues to delusional and anxious. Patient eats more when assisted by her family. Patient needs direction from staff to engage in self care. Medication Change: No Medical Record Reviewed: Yes Consults ordered or reviewed: Medicine consult Mental Status Examination - Cognitive Function Orientation: Person Memory: Impaired Attention: Poor Concentration: Poor Association: Loose Fund of Knowledge: Poor Decription of patient's judgement and insights: Poor I/J likely due to neurocognitive impairment - Mood Mood: Depressed, Anxious - Affect Affect: Constricted - Formal Thought Process Formal Thought Process: Delusions, Paranoia Psychotic Thoughts and Behaviors: +Delusions - Suicidal Ideation Suicidal Ideation: No - Homicidal Ideation Homicidal Ideation: No Goal/Treatment Plan - Goal/Treatment Plan Need for Continued Stay: Discharge may exacerbated symptoms, Severe functional impairment Progress Toward Problem(s) and Goals/Treatment Plan: Major Depressive Disorder w/ Psychotic Features; Major Neurocognitive Disorder -Continue Remeron -Continue Risperdal -Dietitian referral -Individual and group therapy -Psychoeducation -Disposition planning
[2018-11-24] MEDS: Risperidone M TAB 2 MG PO SCH (21:26)
--- NOTE | 2018-11-25 09:26 | PCM.PYCHPN ---
Psychiatric Progress Note - Psychiatric Progress Note Patient seen today, length of contact: Pt evaluated, case discussed w/ team, chart reviewed Patient Chief Complaint: Delusions Problems Identified/Issues Discussed: Patient continues to delusional, but these may be chronic and may not improve with continued titration of antipsychotics. Area Counselor spoke to patient's daughter, Danielle [phone] and explained that patient's primary issues is likely major neurocognitive disorder and that the delusions she has may be chronic. Danielle requested that the patient's Risperdal be lowered. Area Counselor informed patient's daughter, that patient will need 24 hr supervision upon discharge and that she may improve when she is in her home environment as she is more agreeable to eating when with her family. Patient's daughter to discuss disposition with the rest of her family. Medication Change: Yes (Lower Risperdal; Start Aricept) Medical Record Reviewed: Yes Consults ordered or reviewed: Medicine consult Mental Status Examination - Cognitive Function Orientation: Person Memory: Impaired Attention: Poor Concentration: Poor Association: Loose Fund of Knowledge: Poor Decription of patient's judgement and insights: Poor I/J likely due to neurocognitive impairment - Mood Mood: Anxious - Affect Affect: Constricted - Formal Thought Process Formal Thought Process: Delusions Psychotic Thoughts and Behaviors: +Delusions, likely chronic - Suicidal Ideation Suicidal Ideation: No - Homicidal Ideation Homicidal Ideation: No Goal/Treatment Plan - Goal/Treatment Plan Need for Continued Stay: Severe functional impairment Progress Toward Problem(s) and Goals/Treatment Plan: Major Depressive Disorder w/ Psychotic Features; Major Neurocognitive Disorder -Continue Remeron -Lower Risperdal -Start Aricept -Dietitian referral -Medicine consult -Individual and group therapy -Psychoeducation -Disposition planning
[2018-11-25] MEDS: Risperidone M TAB 2 MG PO SCH (21:30)
--- NOTE | 2018-11-26 11:37 | PCM.PYCHPN ---
Psychiatric Progress Note - Psychiatric Progress Note Patient seen today, length of contact: Pt evaluated, case discussed w/ team, chart reviewed Patient Chief Complaint: Delusions Problems Identified/Issues Discussed: Patient reports that she is having vague bad thoughts, but does not have an specific plan or intent to harm herself of others. She continues to have chronic, fixed delusions that are not likely to improve with antipsychotics. She has improved appetite when her family is present. SW to meet with family tomorrow to discuss disposition and to provide additional psychoeducation to the family. No adverse effects to medications reported. Medication Change: No Medical Record Reviewed: Yes Consults ordered or reviewed: Medicine consult Mental Status Examination - Cognitive Function Orientation: Person Memory: Impaired Attention: Poor Concentration: Poor Association: Loose Fund of Knowledge: Poor Decription of patient's judgement and insights: Poor I/J likely due to neurocognitive impairment - Mood Mood: Anxious - Affect Affect: Constricted - Formal Thought Process Formal Thought Process: Delusions Psychotic Thoughts and Behaviors: +Delusions, likely chronic - Suicidal Ideation Suicidal Ideation: No - Homicidal Ideation Homicidal Ideation: No Goal/Treatment Plan - Goal/Treatment Plan Need for Continued Stay: Severe functional impairment Progress Toward Problem(s) and Goals/Treatment Plan: Major Depressive Disorder w/ Psychotic Features; Major Neurocognitive Disorder -Continue Remeron -Continue Risperdal -Continue Aricept -Dietitian referral -Medicine consult -Individual and group therapy -Family meeting scheduled for tomorrow -Psychoeducation -Disposition planning Estimated Date of D/C: 11/28/18
--- NOTE | 2018-11-26 12:11 | PCM.BM ---
Treatment Plan Problems - Problems identified on initial assessmt Altered THought Process Date Initiated: 11/10/18 Time Initiated: 20:46 Assessment reference: NA Status: Active Priority: 1 Less than Optimal Nutrition Date Initiated: 11/10/18 Time Initiated: 20:46 Assessment reference: NA Status: Active Priority: 2 Medication Non adherence Date Initiated: 11/10/18 Time Initiated: 20:47 Assessment reference: NA Status: Active Priority: 3 Anxiety Date Initiated: 11/10/18 Time Initiated: 20:47 Assessment reference: NA Status: Active Priority: 4 Fear Date Initiated: 11/10/18 Time Initiated: 20:47 Assessment reference: NA Status: Active Priority: 5 Panic Attacks Date Initiated: 11/10/18 Time Initiated: 20:47 Assessment reference: NA Status: Active Priority: 6 Self Care Deficit Date Initiated: 11/10/18 Time Initiated: 20:48 Assessment reference: NA Status: Active Priority: 7 Altered Sleep Pattern Date Initiated: 11/10/18 Time Initiated: 20:50 Assessment reference: NA Status: Active Priority: 8 Treatment assets and liabiliti Patient Assests: ADL independent, good support system Patient Liabilities: imparied memory, language/speech - Milieu Protocol Maintain good personal hygiene: daily Encourage regular showers, daily Remind patient to perform daily oral care, daily Assist patient to perform ADL's Maintain personal safety: every shift Educate patient to report safety concerns to staff, every shift Monitor environment for contraband/sharps Medication safety: Monitor for expected outcome, potential side effects: every shift, Assess barriers to learning: every shift, Assess readiness for medication education: every shift Milieu Narrative: Major Depressive Disorder w/ Psychotic Features; Major Neurocognitive Disorder -Continue Remeron -Lower Risperdal -Start Aricept -Dietitian referral -Medicine consult -Individual and group therapy -Psychoeducation -Disposition planning Family Contact Family involvement: Family/SO is involved Family contact: Patient agrees to contact, Family has been contacted by patient, Telephone contact initiated by staff Family contact name: Clarissa Alvarado - granddaughter Family contacted how many times per week?: 2 Family contact comment: [phone] - Outside Agency [facility] involvment: Information-sharing Agency contact number: - Goals for Treatment Patient goals for treatment: Pt will improve overall mood. Pt will be free of persecutory delusions. Pt will be compliant with medications. Pt will attend clinical and activity groups. Pt will be less anxious and more re-directable. Discharge/Continuing Care - Education Needs Education Needs: Family Medication, Family Diagnosis/Disease Process, Family Coping Skills, Family Community resources, Family Activities of Daily Living, Family Health Practices/Safety, Family Personal Hygiene/Grooming, Family Aftercare Safety Plan, Patient Medication, Patient Diagnosis/Disease Process, Patient Coping Skills, Patient Community resources, Patient Activities of Daily Living, Patient Health Practices/Safety, Patient Personal Hygiene/Grooming, Patient Aftercare Safety Plan - Discharge Discharge Criteria: Tolerates medication w/o severe side effects, Free of paranoid thoughts, Free of agitation, Normal sleep pattern, Ability to care for self, Reduction of target symptoms Discharge to:: Home, With Family - Additional Comments 11/13/18 10:08 LATE ENTRY FROM 11/12/2018: Pt discussed in team meeting. Pt invited to attend team meeting but refused. Pt appeared to be highly anxious and pacing in her bedroom. Reason for admission reviewed and discussed. Collateral information obtained from granddaughter reviewed and discussed. Pt presents with increased anxiety, difficult to re- direct and frequent reminders and re-assuring that her family is not and that she did not kill her granddaughter. Pt presents with persecutory delusions. Pt's medications reviewed and discussed at length. Pt's sleep is improving. Pt's appetite is poor and pt refusing to eat meals. Pt's medical and social issues reviewed. Tx plan reviewed and discussed. SW to continue to follow case. - Treatment Team Participation Patient/Family/SO Statement: Major Depressive Disorder w/ Psychotic Features; Major Neurocognitive Disorder -Continue Remeron -Lower Risperdal -Start Aricept -Dietitian referral -Medicine consult -Individual and group therapy -Psychoeducation -Disposition planning Discussed with Family/SO: Yes Was Patient/Family/SO present at Treatment Team Meeting: Yes Treatment Plan Review Patient participation: Yes Family/SO/Caregiver participation: No Additional Comments: Pt seen and discussed in team meeting. Pt's progress and bx on the unit reviewed and discussed. Pt appeared to have brighter affect and observed to be smiling appropriately towards staff. Pt reported feeling "bad" stating that she continues to have "bad ideas and bad desires." Pt reported that she "very bad nerves." When asked what "bad ideas and bad desires" she is experiencing, pt stated "to harm people for pleasure." Pt denied thoughts of hurting people physically. Pt reported that her thoughts are to hurt people by "wishing them or illness." When assessed for memory issues, pt stated "not os much." Pt was observed by continuity writer earlier in the AM to be talking to herself. When asked whom she was talking to, pt stated "making comments on things." Pt reports that he appetite is the same. Pt reported being fearful of eating. Attending psychiatrist reviewed and discussed medications with pt. Pt reported agreement to medication dosage increase if "you think i needed." Utility Pipe Layer informed that reportedly, deepa Hui wants to take her to [place] and pt verbalized that she is in agreement to go to [place] but only if she feels better. Pt reported that she does not feel well at this time. Pt informed that family does not wish for pt to be on high dosage of medication. Tx plan reviewed and discussed. SW to contact Korina arenas to discuss pt's progress and discharge planning. Pt to be weighted by staff. SW to continue to follow case. - Problem Altered THought Process Date Initiated: 11/10/18 Time Initiated: 20:46 Progress toward outcomes: improved (Pt is alert and oriented to person and place.) Less than Optimal Nutrition Date Initiated: 11/10/18 Time Initiated: 20:46 Progress toward outcomes: unchanged (Pt's appetite is poor. Pt is under weight. Pt requires prompting and encouragement to eat her meals.) Medication Non adherence Date Initiated: 11/10/18 Time Initiated: 20:47 Progress toward outcomes: resolved (Pt is compliant with prescribed medications.) Anxiety Date Initiated: 11/10/18 Time Initiated: 20:47 Progress toward outcomes: improved (Pt is less anxious.) Fear Date Initiated: 11/10/18 Time Initiated: 20:47 Progress toward outcomes: unchanged (Pt continues to report fear that she can hurt people with her "bad thoughts.") Panic Attacks Date Initiated: 11/10/18 Time Initiated: 20:47 Progress toward outcomes: improved (Pt is less anxious. Pt has not reported experiencing a panic attack on the unit.) Self Care Deficit Date Initiated: 11/10/18 Time Initiated: 20:48 Progress toward outcomes: unchanged (Pt requires prompting and encouragement to complete ADL's.) Altered Sleep Pattern Date Initiated: 11/10/18 Time Initiated: 20:50 Progress toward outcomes: improved (Pt reported improved sleep pattern.) - Discharge / Continuing Care Discharge to:: Home, With Family Behavioral Health Services: Home health care, Other (Meidcation management) Health Needs: Follow up care/test, Doctor appointments, Nutritional, Medications/Rx, Educational, Recreational/Social
[2018-11-27] MEDS: Risperidone M TAB 2 MG PO SCH ×2 (00:42→21:21)
--- NOTE | 2018-11-27 12:59 | PCM.PYCHPN ---
Psychiatric Progress Note - Psychiatric Progress Note Patient seen today, length of contact: Pt evaluated, case discussed w/ team, chart reviewed Patient Chief Complaint: Inability to care for self Problems Identified/Issues Discussed: Patient primary issue seems to be her neurocognitive impairment and inability to care for herself at this time. She denies acute AH/VH/SI/HI. Patient has chronic, fixed delusions, unlikely to improve with aggressive treatment w/ antipsychotics. Family aware that patient needs 24 hour supervision and will pick her up tomorrow to care for her. Psychoeducation provided to the family about her current medications and treatment needs. See SW note. No adverse effects to medications reported. Medication Change: No Medical Record Reviewed: Yes Consults ordered or reviewed: Medicine consult Mental Status Examination - Cognitive Function Orientation: Person Memory: Impaired Attention: Poor Concentration: Poor Association: Loose Fund of Knowledge: Poor Decription of patient's judgement and insights: Poor I/J likely due to neurocognitive impairment - Mood Mood: Anxious - Affect Affect: Broad - Formal Thought Process Formal Thought Process: Delusions Psychotic Thoughts and Behaviors: +Delusions, chronic, fixed; patient does not act on delusional beliefs or talk about them unless explicitly asked - Suicidal Ideation Suicidal Ideation: No - Homicidal Ideation Homicidal Ideation: No Goal/Treatment Plan - Goal/Treatment Plan Need for Continued Stay: Severe functional impairment Progress Toward Problem(s) and Goals/Treatment Plan: Major Neurocognitive Disorder; Major Depressive Disorder w/ Psychotic Features -Continue Remeron -Continue Risperdal -Continue Aricept -Dietitian referral -Medicine consult -Individual and group therapy -Psychoeducation -Disposition planning- Patient to be picked up by her family tomorrow who will provide 24 hr supervision to the patient Estimated Date of D/C: 11/28/18
[2018-11-28 06:23] VITALS: BP 119/63; PULSE 80; RESP 19; TEMP 97.2
--- NOTE | 2018-11-28 08:13 | PCM.PYCHDC ---
Mental Status Examination - Mental Status Examination Orientation: Person Memory: Impaired Mood: Neutral Affect: Broad Speech: Soft Attention: Poor Concentration: Poor Fund of Knowledge: Poor Formal Thought Process: Delusions (Patient has mild, chronic, fixed delusions; does not act on these delusions or talk about them unless explicitly asked), Loosening of associations Description of patient's judgement and insight: Poor I/J likely due to neurocognitive impairment Psychotic Thoughts and Behaviors: No AH/VH; patient in good behavioral control Suicidal Ideation: No Current Homicidal Ideation?: No Discharge Summary - Discharge Note Reason for Hospitalization: 83 yo female admitted with worsening memory, depression, anxiety and delusional beliefs that she can hurt her family with her mind. +Sleep/appetite disturbances. Consultations:: List each consultation separately and include: 1. Reason for request. 2. Findings. 3. Follow-up Consultations: Medicine consult Summary of Hospital Course include:: 1. Description of specific treatment plan utilized for patients during their course of treatmen. 2. Summarize the time- course for resolution of acute symptoms and/or regressed behaviors. 3. Describe issues identified and worked on during hospitalization. 4. Describe medication utilized. 5. Describe medical problems identified and treated. 6. Reassessment of suicide risk Summary of Hospital Course: Patient was admitted to the psychiatry unit. Individual and group therapy were provided. Psychoeducation was provided to the patient's family. Patient was stabilized on Aricept 5 mg PO HS, Remeron 2 mg PO HS, Risperdal 2 mg PO HS and Megace 20 mg PO Daily. Patient has significant neurocognitive impairments and will be discharged under the care of her family. - Final Diagnosis (DSM 5) Condition upon Discharge: STABLE DSM 5: Major Neurocognitive Disorder; Major Depressive Disorder w/ Psychotic Features Disposition: HOME/ ROUTINE Follow-up Treatment Plan: Major Neurocognitive Disorder; Major Depressive Disorder w/ Psychotic Features -Continue Remeron -Continue Risperdal -Continue Aricept -Continue Megace -Discharge under the care of her family Prescriptions/Medication Reconciliation: Donepezil [Aricept] 5 mg PO HS #30 tab Enalapril Maleate [Vasotec] 5 mg PO DAILY #30 tab Megestrol [Megace] 20 mg PO DAILY #30 tab Mirtazapine [Remeron] 15 mg PO HS #30 tab Risperidone 2 mg PO HS #30 tablet - Smoking Cessation Smoking Cessation Medication prescribed: No Reason for not providing: Not indicated - Antipsychotic Medications Pt discharged on 2 or more routine antipsychotic medications: No
== END 2018-11-28 01:30 | disposition home or self-care (01) | DRG 751 ==
LOC: H.ER 18:27 → H.STEP 18:39
PROVIDERS: ADMIT Psychiatry & Neurology Psychiatry; ATTEND Psychiatry & Neurology Psychiatry
PROC: GZHZZZZ Group Psychotherapy (ICD-10-PCS; principal; 2018-11-10)
PROC: GZ58ZZZ Individual Psychotherapy, Cognitive-Behavioral (ICD-10-PCS; 2018-11-10)
DX: F33.3 Major depressive disorder, recurrent, severe with psychotic symptoms (principal); F01.51 Vascular dementia, unspecified severity, with behavioral disturbance; F41.9 Anxiety disorder, unspecified; I10 Essential (primary) hypertension